=== PATIENT | female | born 1945 | race African-American/Black ===

== ENCOUNTER 2017-07-25 07:06 | Day surgery (SDC) | payer MEDICARE ==
[2017-07-24 12:24] VITALS: BMI 36.0
[~2017-07-25 07:06] MED LIST: Cyclopentolate 1% Opth Drop 2 ML BOT FS SCH; EPINEPHrine 0.3 MG, Dextrose 50% 3 ML in Ophthalmic Irrigation Solution 500 ML FS SCH; Phenylephrine 2.5% Ophth Soln 5 ML BOT FS SCH
[2017-07-25] MEDS ORDERED: Cyclopentolate 1% Opth Drop 2 ML BOT ONE (07:24)
[2017-07-25] MEDS ORDERED: Phenylephrine 2.5% Ophth Soln 5 ML BOT ONE (07:25)
[2017-07-25] MEDS ORDERED: Diprivan 20 ML ONE (09:07)
[2017-07-25] MEDS ORDERED: Midazolam HCl 2 mg/2 ml Vial ONE (09:07)
[2017-07-25] MEDS ORDERED: Ondansetron HCl/PF 4 MG/2 ML Vial ONE ×2 (09:07→16:52)
[2017-07-25] MEDS ORDERED: Lidocaine 2% w/Epinephrine 1:200K 20 ML VIAL ONE (09:07)
--- NOTE | 2017-07-25 11:18 | OP ---
DATE OF PROCEDURE: 07/25/2017 POSTOPERATIVE DIAGNOSIS: Tractional retinal detachment, right eye. SURGEON: Michael Mcqueen M.D. ANESTHESIA: Local with monitored anesthesia care. PROCEDURE IN DETAIL: The patient was identified in the preoperative holding area. Appropriate infor med consent for the planned surgical procedure on the right eye had been obtained. The patient was t ransported to the operative suite where appropriate cardiopulmonary monitoring was established. Loca l anesthesia was obtained using retrobulbar and modified Van Lint lid block using 50/50 mixture of 4% lidocaine and 0.75% bupivacaine. The patient was prepped and draped in the usual sterile manner for ophthalmic surgery on the right eye. Lid speculum was placed in the right eye. The 25-gauge trocar s were placed in conjunctiva and sclera supratemporally, inferotemporally, and supranasally. Infusio n line was placed inferotemporally. Light pipe and vitreous cutter were inserted into the eye. Core of vitrectomy was performed. Extensive traction was noted on the nerve. There was some early funne l formation noted around the optic nerve and tractional retinal detachment extended nasally. Extensi ve dissection allowed. Relief of the traction on the nerve and removal of traction elements extendin g nasally and inferior temporally. Subretinal fluid was drained. Watson retinal photocoagulation was p laced into all non-macular areas of the retina. A 28% sulfur hexafluoride gas was infused into the e ye. Trocars were removed and the eye was noted to retain pressure well. Retrobulbar Kenalog and sub conjunctival Ancef were placed. Atropine and antibiotic ointment were placed, and the eye was patche d and shielded. The patient was taken to the postoperative recovery unit in good condition having hernandes ffered no immediate perioperative period. DISCHARGE INSTRUCTIONS: The patient was instructed to keep patch and shield on, avoid flat on back p ositioning, and follow up in the morning with Dr. Mcqueen.
[2017-07-25] MEDS ORDERED: Propofol 200 MG/20 ML VIAL ONE (16:52)
== END 2017-07-25 11:17 | disposition home or self-care (01) ==
LOC: SDC 07:06
PROVIDERS: ATTEND Ophthalmology Retina Specialist
PROC: 08B43ZZ Excision of Right Vitreous, Percutaneous Approach (ICD-10-PCS; principal; 2017-07-25)
PROC: 08QE3ZZ Repair Right Retina, Percutaneous Approach (ICD-10-PCS; 2017-07-25)
DX: H33.41 Traction detachment of retina, right eye (principal); H35.371 Puckering of macula, right eye; Z79.82 Long term (current) use of aspirin; Z79.899 Other long term (current) drug therapy
CPT/HCPCS: 67025; J0171; J2250; J2405; J2704

== ENCOUNTER 2023-06-22 00:01 | Inpatient (IN) | payer BC, OTHER ==
[2023-06-22] MEDS ORDERED: Acetaminophen 650 MG Suppository PR PRN (02:29)
[2023-06-22] MEDS ORDERED: Ondansetron PF 4 MG/2 ML Vial IVP PRN (02:29)
[2023-06-22] MEDS ORDERED: Ondansetron ODT 4 MG TAB PO PRN (02:29)
[2023-06-22] MEDS ORDERED: Acetaminophen 325 MG TAB PO PRN (02:29)
[2023-06-22] MEDS ORDERED: Ipratropium/Albuterol 3 ML NEB NEB PRN (02:36)
[2023-06-22 02:52] VITALS: BMI 32.1
[2023-06-22 02:59] LABS: Troponin I 0.156 ng/mL (< 0.028)
[2023-06-22] MEDS ORDERED: Amiodarone 450 MG in Dextrose 5% in Water 250 ML IVPB SCH (03:30)
[2023-06-22 04:31] LABS: #Basophils 0.1 thou/uL (0.0-0.2); #Eosinphils 0.1 thou/uL (0.0-0.7); #Monocytes 0.8 thou/uL (0.11-0.59); %Basophils 0.6 % (0.0-1.0); %Eosinophils 0.6 % (0.0-10.0); %Lymphocytes 27.6 % (21.0-51.0); %Monocytes 8.3 % (0.0-10.0); %Neutrophils 62.7 % (42.0-75.0); Hematocrit 36.9 % (36.0-47.0); Hemoglobin 11.8 g/dL (12.0-16.0); Mean Corpuscular Hemoglobin 27.6 pg (27.0-31.0); Mean Corpuscular Volume 86.2 fl (78.0-98.0); Mean Platelet Volume 12.3 fL (7.4-10.4); Platelet Count 220 10x3/uL (130-400); RBC Distribution Width 13.5 % (11.5-14.5); Red Blood Cell (RBC) Count 4.28 mill/uL (4.20-5.40); White Blood Cell (WBC) Count 9.6 10x3/uL (4.8-10.8)
[2023-06-22 04:40] LABS: Hemoglobin A1c 5.7 % (4.0-6.0)
[2023-06-22] MEDS ORDERED: Electrolyte Replacement Protocol 1 EACH FS SCH (04:45)
[2023-06-22 04:53] LABS: Anion Gap 14 mmol/L (10-20); BUN (Urea Nitrogen) 24 mg/dL (9.8-20.1); Calc. Creatinine Clearance 57 mL/min (70-130); Calcium 8.9 mg/dL (7.8-10.44); Carbon Dioxide 24 mmol/L (23-31); Chloride 108 mmol/L (98-107); Estimated GFR 45; Glucose 118 mg/dL (83-110); Magnesium 1.9 mg/dL (1.6-2.6); Potassium 3.8 mmol/L (3.5-5.1); Sodium 142 mmol/L (136-145)
[2023-06-22 07:34] LABS: Critical Call Chem Troponin I NUR.SH13@0730; Troponin I 0.299 ng/mL (< 0.028)
[2023-06-22] MEDS ORDERED: Enoxaparin 100 MG (1 mL) SYRINGE ONE ×2 (07:55→18:08)
[2023-06-22] MEDS: Enoxaparin 100 MG (1 mL) SYRINGE SC SCH ×2 (07:57→18:27)
[2023-06-22] MEDS ORDERED: Magnesium 2 GM/50 ML(in water) 2 GM in Premix 1 BAG IVPB SCH (08:00)
[2023-06-22] MEDS ORDERED: Furosemide 40 MG (4 mL) VIAL ONE ×2 (08:00→14:06)
[2023-06-22] MEDS ORDERED: Magnesium 2 GM/50 ML BAG (IN WATER) ONE (08:00)
[2023-06-22] MEDS ORDERED: HumaLOG 300 UNITS/3 ML VIAL SC PRN ×2 (08:01)
[2023-06-22] MEDS ORDERED: Enoxaparin 40 MG (0.4 mL) SYRINGE SC SCH (09:00)
[2023-06-22] MEDS ORDERED: Furosemide 40 MG (4 mL) VIAL SLOW IVP SCH ×2 (09:00→14:45)
[2023-06-22] MEDS ORDERED: hydrALAZINE 20 MG/ML VIAL ONE (09:46)
[2023-06-22] MEDS: hydrALAZINE 20 MG/ML VIAL SLOW IVP PRN ×2 (09:51→21:19)
[2023-06-22] MEDS ORDERED: Metoprolol Tartrate 5 MG (5 mL) VIAL IVP SCH (23:59)
[2023-06-23 00:53] LABS: Hematocrit 42.5 % (36.0-47.0); Hemoglobin 13.4 g/dL (12.0-16.0); Manual Diff?? YES; Mean Corpuscular HGB CONC 31.5 g/dL (32.0-36.0); Mean Corpuscular Hemoglobin 27.3 pg (27.0-31.0); Mean Corpuscular Volume 86.6 fl (78.0-98.0); Mean Platelet Volume 12.4 fL (7.4-10.4); Platelet Count 218 10x3/uL (130-400); RBC Distribution Width 13.5 % (11.5-14.5); Red Blood Cell (RBC) Count 4.91 mill/uL (4.20-5.40); White Blood Cell (WBC) Count 7.9 10x3/uL (4.8-10.8)
[2023-06-23 00:56] LABS: Delete Auto Diff?? YES
[2023-06-23 01:07] LABS: Magnesium 2.2 mg/dL (1.6-2.6)
[2023-06-23 01:11] LABS: Troponin I 0.189 ng/mL (< 0.028)
[2023-06-23 01:39] LABS: Anion Gap 21 mmol/L (10-20); BUN (Urea Nitrogen) 20 mg/dL (9.8-20.1); Calc. Creatinine Clearance 50 mL/min (70-130); Calcium 9.4 mg/dL (7.8-10.44); Carbon Dioxide 20 mmol/L (23-31); Cardiac Risk 3.2 (Less than 4.5); Chloride 106 mmol/L (98-107); Cholesterol 252 mg/dl (< 200 Desired); Estimated GFR 42; Glucose 97 mg/dL (83-110); HDL Cholesterol 80 mg/dL (>60 Neg Risk); LDL Cholesterol, Calculated 162 mg/dL; Potassium 3.6 mmol/L (3.5-5.1); Sodium 143 mmol/L (136-145); Triglycerides 48 mg/dL (Less than 150)
[2023-06-23 01:52] LABS: Eosinophils 2 % (0-10); Lymphocytes 30 % (21-51); Monocytes 9 % (0-10); Neutrophil 58 % (42-75)
[2023-06-23 01:54] LABS: Stomatocytes SLIGHT = 2-5 cells (100X) (0-1/hpf)
[2023-06-23 01:55] LABS: Ovalocytes SLIGHT = 2-5 cells (100X) (0-1/hpf); Platelet Adequacy Comment Appears Adequate
[2023-06-23] MEDS: Enoxaparin 100 MG (1 mL) SYRINGE SC SCH ×2 (05:12→18:47)
[2023-06-23] MEDS: Furosemide 40 MG (4 mL) VIAL SLOW IVP SCH ×2 (05:12→15:28)
[2023-06-23] MEDS: Hydrochlorothiazide 25 MG TAB PO SCH (09:28)
[2023-06-23] MEDS: Lisinopril 20 MG TAB PO SCH (09:28)
[2023-06-24 04:27] LABS: #Basophils 0.1 thou/uL (0.0-0.2); #Eosinphils 0.1 thou/uL (0.0-0.7); #Monocytes 0.8 thou/uL (0.11-0.59); #Neutrophils 4.7 thou/uL (1.40-6.50); %Eosinophils 1.7 % (0.0-10.0); %Monocytes 9.3 % (0.0-10.0); %Neutrophils 57.8 % (42.0-75.0); Hematocrit 39.8 % (36.0-47.0); Hemoglobin 12.5 g/dL (12.0-16.0); Mean Corpuscular HGB CONC 31.4 g/dL (32.0-36.0); Mean Corpuscular Hemoglobin 27.2 pg (27.0-31.0); Mean Corpuscular Volume 86.5 fl (78.0-98.0); Mean Platelet Volume 12.5 fL (7.4-10.4); Platelet Count 227 10x3/uL (130-400); RBC Distribution Width 13.6 % (11.5-14.5); White Blood Cell (WBC) Count 8.1 10x3/uL (4.8-10.8)
[2023-06-24 04:51] LABS: Anion Gap 17 mmol/L (10-20); BUN (Urea Nitrogen) 31 mg/dL (9.8-20.1); Calc. Creatinine Clearance 39 mL/min (70-130); Calcium 9.1 mg/dL (7.8-10.44); Carbon Dioxide 23 mmol/L (23-31); Chloride 104 mmol/L (98-107); Estimated GFR 30; Glucose 82 mg/dL (83-110); Potassium 3.4 mmol/L (3.5-5.1); Sodium 141 mmol/L (136-145)
[2023-06-24] MEDS: Enoxaparin 100 MG (1 mL) SYRINGE SC SCH ×2 (05:48→18:35)
[2023-06-24] MEDS: Furosemide 40 MG (4 mL) VIAL SLOW IVP SCH (05:49)
[2023-06-24] MEDS ORDERED: Potassium Chloride 20 MEQ TAB PO SCH (08:00)
[2023-06-24] MEDS: Hydrochlorothiazide 25 MG TAB PO SCH (09:04)
[2023-06-24] MEDS: Lisinopril 20 MG TAB PO SCH (09:04)
[2023-06-24] MEDS ORDERED: dilTIAZem 25 MG/5 ML VIAL SLOW IVP SCH (09:15)
[2023-06-24] MEDS: dilTIAZem 125 MG in Sodium Chloride 0.9% 100 ML IVPB SCH (10:30)
[2023-06-24] MEDS ORDERED: Sodium Chloride 0.65% Nasal 44 ML BOT EA NARE PRN (13:37)
[2023-06-24] MEDS ORDERED: Sodium Chloride 0.9% 500 ML IV SCH (15:45)
[2023-06-25] MEDS: Enoxaparin 100 MG (1 mL) SYRINGE SC SCH ×2 (05:03→17:55)
[2023-06-25] MEDS: dilTIAZem 125 MG in Sodium Chloride 0.9% 100 ML IVPB SCH (05:03)
[2023-06-25] MEDS ORDERED: Furosemide 40 MG (4 mL) VIAL SLOW IVP SCH (06:00)
[2023-06-25 07:01] LABS: #Basophils 0.1 thou/uL (0.0-0.2); #Eosinphils 0.1 thou/uL (0.0-0.7); #Monocytes 0.8 thou/uL (0.11-0.59); #Neutrophils 4.6 thou/uL (1.40-6.50); %Basophils 1.1 % (0.0-1.0); %Eosinophils 1.1 % (0.0-10.0); %Lymphocytes 29.9 % (21.0-51.0); %Monocytes 9.9 % (0.0-10.0); %Neutrophils 57.6 % (42.0-75.0); Hematocrit 42.5 % (36.0-47.0); Mean Corpuscular HGB CONC 30.6 g/dL (32.0-36.0); Mean Corpuscular Hemoglobin 27.4 pg (27.0-31.0); Mean Corpuscular Volume 89.5 fl (78.0-98.0); Mean Platelet Volume 12.4 fL (7.4-10.4); Platelet Count 211 10x3/uL (130-400); RBC Distribution Width 13.7 % (11.5-14.5); Red Blood Cell (RBC) Count 4.75 mill/uL (4.20-5.40)
[2023-06-25 08:05] LABS: Anion Gap 21 mmol/L (10-20); BUN (Urea Nitrogen) 46 mg/dL (9.8-20.1); Calc. Creatinine Clearance 24 mL/min (70-130); Calcium 9.1 mg/dL (7.8-10.44); Carbon Dioxide 21 mmol/L (23-31); Chloride 105 mmol/L (98-107); Estimated GFR 17; Glucose 75 mg/dL (83-110); Sodium 143 mmol/L (136-145)
[2023-06-25] MEDS ORDERED: Sodium Chloride 0.9% 500 ML IV SCH (08:45)
[2023-06-25] MEDS: Hydrochlorothiazide 25 MG TAB PO SCH (09:02)
[2023-06-25] MEDS: Lisinopril 20 MG TAB PO SCH (09:02)
[2023-06-25] MEDS ORDERED: ADENOSINE 60 MG/20 ML SDV ONE (11:09)
[2023-06-26 07:47] LABS: #Basophils 0.1 thou/uL (0.0-0.2); #Eosinphils 0.2 thou/uL (0.0-0.7); #Monocytes 0.7 thou/uL (0.11-0.59); #Neutrophils 3.9 thou/uL (1.40-6.50); %Eosinophils 2.7 % (0.0-10.0); %Lymphocytes 30.7 % (21.0-51.0); %Monocytes 9.6 % (0.0-10.0); %Neutrophils 55.7 % (42.0-75.0); Hematocrit 39.4 % (36.0-47.0); Hemoglobin 12.4 g/dL (12.0-16.0); Mean Corpuscular HGB CONC 31.5 g/dL (32.0-36.0); Mean Corpuscular Hemoglobin 27.7 pg (27.0-31.0); Mean Corpuscular Volume 87.9 fl (78.0-98.0); Mean Platelet Volume 12.1 fL (7.4-10.4); Platelet Count 190 10x3/uL (130-400); RBC Distribution Width 13.3 % (11.5-14.5); Red Blood Cell (RBC) Count 4.48 mill/uL (4.20-5.40)
[2023-06-26 08:03] LABS: Anion Gap 14 mmol/L (10-20); BUN (Urea Nitrogen) 47 mg/dL (9.8-20.1); Calc. Creatinine Clearance 35 mL/min (70-130); Carbon Dioxide 22 mmol/L (23-31); Chloride 108 mmol/L (98-107); Estimated GFR 28; Glucose 90 mg/dL (83-110); Potassium 4.2 mmol/L (3.5-5.1); Sodium 140 mmol/L (136-145)
[2023-06-26] MEDS: Enoxaparin 100 MG (1 mL) SYRINGE SC SCH (17:29)
[2023-06-26] MEDS: Atorvastatin Calcium 40 MG TAB PO SCH (20:24)
[2023-06-27 07:46] LABS: Anion Gap 16 mmol/L (10-20); BUN (Urea Nitrogen) 46 mg/dL (9.8-20.1); Calc. Creatinine Clearance 38 mL/min (70-130); Calcium 9.7 mg/dL (7.8-10.44); Carbon Dioxide 23 mmol/L (23-31); Chloride 106 mmol/L (98-107); Estimated GFR 30; Glucose 104 mg/dL (83-110); Potassium 4.2 mmol/L (3.5-5.1); Sodium 141 mmol/L (136-145)
[2023-06-27] MEDS: Aspirin 81 mg Enteric Coated Tablet PO SCH (08:13)
[2023-06-27] MEDS ORDERED: Enoxaparin 100 MG (1 mL) SYRINGE SC SCH (10:15)
[2023-06-27] MEDS ORDERED: Amiodarone 200 MG TAB PO SCH (10:15)
[2023-06-27] MEDS: Amiodarone 200 MG TAB PO SCH ×2 (14:23→20:34)
[2023-06-27] MEDS: Atorvastatin Calcium 40 MG TAB PO SCH (20:35)
[2023-06-27] MEDS: Enoxaparin 100 MG (1 mL) SYRINGE SC SCH (20:35)
[2023-06-28 05:07] LABS: Anion Gap 16 mmol/L (10-20); BUN (Urea Nitrogen) 43 mg/dL (9.8-20.1); Calc. Creatinine Clearance 42 mL/min (70-130); Carbon Dioxide 18 mmol/L (23-31); Chloride 107 mmol/L (98-107); Estimated GFR 34; Glucose 87 mg/dL (83-110); Potassium 4.2 mmol/L (3.5-5.1); Sodium 137 mmol/L (136-145)
[2023-06-28] MEDS: Aspirin 81 mg Enteric Coated Tablet PO SCH (09:50)
[2023-06-28] MEDS: Amiodarone 200 MG TAB PO SCH ×2 (09:50→14:48)
[2023-06-28] MEDS: Enoxaparin 100 MG (1 mL) SYRINGE SC SCH (09:51)
[2023-06-28 11:06] VITALS: BP 139/64; TEMP 97.8
== END 2023-06-28 18:24 | disposition home or self-care (01) | DRG 280 ==
LOC: ERS 00:01 → ERHOLD 02:21 → 2NO 19:20
PROVIDERS: ADMIT Student in an Organized Health Care Education/Training Program; ATTEND Internal Medicine
DX: I13.0 Hypertensive heart and chronic kidney disease with heart failure and stage 1 through stage 4 chronic kidney disease, or unspecified chronic kidney disease (principal); I50.43 Acute on chronic combined systolic (congestive) and diastolic (congestive) heart failure; I21.A1 Myocardial infarction type 2; J96.01 Acute respiratory failure with hypoxia; I48.92 Unspecified atrial flutter; N17.9 Acute kidney failure, unspecified; E11.22 Type 2 diabetes mellitus with diabetic chronic kidney disease; N18.30 Chronic kidney disease, stage 3 unspecified; I48.0 Paroxysmal atrial fibrillation; R94.39 Abnormal result of other cardiovascular function study; I45.10 Unspecified right bundle-branch block; E03.9 Hypothyroidism, unspecified; M19.90 Unspecified osteoarthritis, unspecified site; Z79.82 Long term (current) use of aspirin; Z79.899 Other long term (current) drug therapy; Z87.891 Personal history of nicotine dependence
CPT/HCPCS: 36415; 36416; 78452; 80048; 80061; 83036; 83605; 83735; 84443; 84484; 85025; 93005; 93010; 93017; 93306; 93798; 96365; 96366; A9502; J0153; J0282; J0360; J1650; J1940; J3475; J3490; J7030; J7070; Q0162

== ENCOUNTER 2025-05-06 18:19 | Inpatient (IN) | payer OTHER ==
[2025-05-06] MEDS ORDERED: Electrolyte Replacement Protocol 1 EACH FS SCH (23:15)
[2025-05-06] MEDS ORDERED: Calcium Carbonate 500 MG ChewTAB PO PRN (23:15)
[2025-05-06] MEDS ORDERED: Acetaminophen 325 MG TAB PO PRN (23:15)
[2025-05-06] MEDS ORDERED: Ondansetron PF 4 MG/2 ML Vial IVP PRN (23:15)
[2025-05-06] MEDS ORDERED: Magnesium 2 GM/50 ML(in water) 2 GM in Premix 1 BAG IVPB PRN (23:30)
[2025-05-06] MEDS ORDERED: PHOS-NAK 1 PKT PACK PO PRN (23:30)
[2025-05-06] MEDS ORDERED: Potassium Chloride 20 MEQ in Premix 1 BAG IVPB PRN (23:30)
[2025-05-06 23:37] VITALS: BMI 28.9
[2025-05-07 04:30] LABS: #Basophils 0.07 10x3/uL (0.0-0.2); #Eosinophils 0.14 10x3/uL (0.0-0.7); #Monocytes 0.68 10x3/uL (0.11-0.59); #Neutrophils 4.83 10x3/uL (1.40-6.50); %Basophils 0.9 % (0.0-1.0); %Eosinophils 1.8 % (0.0-10.0); %Lymphocytes 28.3 % (21.0-51.0); %Monocytes 8.5 % (0.0-10.0); %Neutrophils 60.4 % (42.0-75.0); Hematocrit 33.1 % (36.0-47.0); Hemoglobin 10.3 g/dL (12.0-16.0); Mean Corpuscular Hemoglobin 27.0 pg (27.0-31.0); Mean Corpuscular Volume 86.6 fL (78.0-98.0); Platelet Count 187 10x3/uL (130-400); Red Blood Cell (RBC) Count 3.82 mill/uL (4.20-5.40); White Blood Cell (WBC) Count 7.99 10x3/uL (4.8-10.8)
[2025-05-07 04:50] LABS: ALT (SGPT) 9 U/L (Less than 34); AST (SGOT) 16 U/L (11-34); Albumin 3.3 g/dL (3.1-4.5); Alkaline Phosphatase 63 U/L (40-110); Anion Gap 12 mmol/L (10-20); BUN (Urea Nitrogen) 24 mg/dL (9.8-20.1); Bilirubin, Total 0.3 mg/dL (0.3-1.2); Calc. Creatinine Clearance 48 mL/min (70-130); Calcium 8.8 mg/dL (7.8-10.44); Carbon Dioxide 23 mmol/L (23-31); Chloride 110 mmol/L (98-107); Globulin 2.7 g/dL (2.4-3.5); Glucose 83 mg/dL (83-110); Potassium 4.5 mmol/L (3.5-5.1); Sodium 140 mmol/L (136-145)
[2025-05-07 08:24] LABS: Magnesium 2.1 mg/dL (1.6-2.6)
[2025-05-07] MEDS: Aspirin Chewable 81 MG TAB PO SCH (08:40)
[2025-05-07] MEDS: Rosuvastatin 20 MG TAB PO SCH (08:41)
[2025-05-07] MEDS: Amiodarone 200 MG TAB PO SCH (08:50)
[2025-05-07] MEDS: Losartan 25 MG TAB PO SCH (08:56)
[2025-05-07] MEDS ORDERED: Losartan 25 MG TAB PO SCH (09:00)
[2025-05-07 12:53] LABS: Free T4 (Free Thyroxine) 1.44 ng/dL (0.70-1.48); Thyroid Stimulating Hormone 0.5434 uIU/mL (0.35-4.94)
[2025-05-07] MEDS ORDERED: Potassium Chloride 20 MEQ in Premix 1 BAG IVPB PRN (16:15)
[2025-05-07] MEDS ORDERED: Magnesium Sulfate In Water 4 GM in Premix 1 BAG IVPB PRN (16:15)
[2025-05-07] MEDS ORDERED: PHOS-NAK 1 PKT PACK PO PRN (16:15)
[2025-05-08 04:37] LABS: #Basophils 0.06 10x3/uL (0.0-0.2); #Eosinophils 0.16 10x3/uL (0.0-0.7); #Monocytes 0.72 10x3/uL (0.11-0.59); #Neutrophils 4.50 10x3/uL (1.40-6.50); %Basophils 0.8 % (0.0-1.0); %Eosinophils 2.1 % (0.0-10.0); %Lymphocytes 29.9 % (21.0-51.0); %Monocytes 9.2 % (0.0-10.0); %Neutrophils 57.6 % (42.0-75.0); Hematocrit 34.2 % (36.0-47.0); Hemoglobin 10.5 g/dL (12.0-16.0); Mean Corpuscular Hemoglobin 27.0 pg (27.0-31.0); Mean Corpuscular Volume 87.9 fL (78.0-98.0); Platelet Count 188 10x3/uL (130-400); Red Blood Cell (RBC) Count 3.89 mill/uL (4.20-5.40); White Blood Cell (WBC) Count 7.80 10x3/uL (4.8-10.8)
[2025-05-08 05:06] LABS: Anion Gap 9 mmol/L (10-20); BUN (Urea Nitrogen) 20 mg/dL (9.8-20.1); Calc. Creatinine Clearance 46 mL/min (70-130); Calcium 8.3 mg/dL (7.8-10.44); Carbon Dioxide 23 mmol/L (23-31); Chloride 111 mmol/L (98-107); Glucose 90 mg/dL (83-110); Magnesium 2.0 mg/dL (1.6-2.6); Potassium 4.4 mmol/L (3.5-5.1); Sodium 139 mmol/L (136-145)
[2025-05-09 03:16] VITALS: TEMP 98
[2025-05-09 05:52] LABS: #Basophils 0.05 10x3/uL (0.0-0.2); #Eosinophils 0.19 10x3/uL (0.0-0.7); #Monocytes 0.71 10x3/uL (0.11-0.59); #Neutrophils 4.14 10x3/uL (1.40-6.50); %Basophils 0.7 % (0.0-1.0); %Eosinophils 2.6 % (0.0-10.0); %Lymphocytes 29.8 % (21.0-51.0); %Monocytes 9.8 % (0.0-10.0); %Neutrophils 56.8 % (42.0-75.0); Hematocrit 34.1 % (36.0-47.0); Hemoglobin 11.0 g/dL (12.0-16.0); Mean Corpuscular Hemoglobin 27.8 pg (27.0-31.0); Mean Corpuscular Volume 86.1 fL (78.0-98.0); Platelet Count 184 10x3/uL (130-400); Red Blood Cell (RBC) Count 3.96 mill/uL (4.20-5.40); White Blood Cell (WBC) Count 7.28 10x3/uL (4.8-10.8)
[2025-05-09 06:05] LABS: Anion Gap 11 mmol/L (10-20); BUN (Urea Nitrogen) 16 mg/dL (9.8-20.1); Calc. Creatinine Clearance 49 mL/min (70-130); Calcium 8.6 mg/dL (7.8-10.44); Carbon Dioxide 23 mmol/L (23-31); Chloride 111 mmol/L (98-107); Glucose 89 mg/dL (83-110); Magnesium 1.8 mg/dL (1.6-2.6); Potassium 4.4 mmol/L (3.5-5.1); Sodium 141 mmol/L (136-145)
[2025-05-09 07:58] VITALS: BP 145/71
== END 2025-05-09 14:25 | disposition home or self-care (01) | DRG 309 ==
LOC: OBS 22:22 → INTOOBSV 22:22 → OBSVTOIN 05-07 12:04
PROVIDERS: ADMIT Internal Medicine; ATTEND Internal Medicine
DX: I48.91 Unspecified atrial fibrillation (principal); N17.9 Acute kidney failure, unspecified; E78.5 Hyperlipidemia, unspecified; I47.29 Other ventricular tachycardia; I48.92 Unspecified atrial flutter; I25.10 Atherosclerotic heart disease of native coronary artery without angina pectoris; E03.9 Hypothyroidism, unspecified; E05.90 Thyrotoxicosis, unspecified without thyrotoxic crisis or storm; I12.9 Hypertensive chronic kidney disease with stage 1 through stage 4 chronic kidney disease, or unspecified chronic kidney disease; E11.22 Type 2 diabetes mellitus with diabetic chronic kidney disease; N18.30 Chronic kidney disease, stage 3 unspecified; Z79.890 Hormone replacement therapy; Z79.899 Other long term (current) drug therapy; R00.1 Bradycardia, unspecified; E86.0 Dehydration; Z95.5 Presence of coronary angioplasty implant and graft; E11.51 Type 2 diabetes mellitus with diabetic peripheral angiopathy without gangrene
CPT/HCPCS: 36415; 80048; 80053; 83735; 84100; 84439; 84443; 84481; 84484; 85025; 93005; 93010; 94760; G0378; J7030